=== PATIENT | female | born 1985 | race African-American/Black ===

== ENCOUNTER 2020-07-06 12:00 | Inpatient (IN) | payer OTHER ==
[2020-07-06] MEDS: ELECTROLYTE-148 SOLN 1,000 ML IV SCH (12:45)
[2020-07-06 12:51] VITALS: BMI 37.9
[2020-07-06] MEDS ORDERED: OXYTOCIN 30 UNITS in 0.9% NS 30 UNIT/500 ML INFUS.BAG IVPB ONE (13:26)
[2020-07-06] MEDS: OXYTOCIN 30 UNITS in 0.9% NS 30 UNIT/500 ML INFUS.BAG IVPB SCH (13:40)
[2020-07-06 14:00] LABS: BASO % 0.6 % (0-2.0); EOS % 0.2 % (0-4.5); HEMATOCRIT 36.1 % (32.4-45.2); HEMOGLOBIN 12.1 GM/dL (10.7-15.3); LYMPH % 16.2 % (8-40); MCH 32.7 pg (25.7-33.7); MCHC 33.6 g/dl (32.0-36.0); MEAN CELL VOLUME 97.3 fl (80-96); MEAN PLT VOLUME 10.9 fl (7.5-11.1); MONO % 8.8 % (3.8-10.2); NEUT % 74.2 % (42.8-82.8); PLATELET COUNT 107 K/MM3 (134-434); RBC 3.71 M/mm3 (3.60-5.2); RDW 17.3 % (11.6-15.6); WHITE BLOOD COUNT 6.1 K/mm3 (4.0-10.0)
[2020-07-06 14:07] LABS: INR 0.97 (0.83-1.09); PROTHROMBIN TIME (PATIENT) 11.8 SEC (9.7-13.0)
[2020-07-06 14:09] LABS: ACTIVATED PTT 28.5 SECONDS (25.2-36.5)
[2020-07-06 14:27] LABS: POTASSIUM 3.6 mmol/L (3.5-5.1)
[2020-07-06 14:30] LABS: BLOOD UREA NITROGEN 5.1 mg/dL (7-18); CALCIUM 9.2 mg/dL (8.5-10.1)
[2020-07-06 14:33] LABS: CREATININE 0.6 mg/dL (0.55-1.3)
[2020-07-06] MEDS ORDERED: PCA PUMP NR ONE (16:24)
[2020-07-06] MEDS ORDERED: LIDOCAINE HCL 1% PRESERVATIVE FREE - 30ML VIAL ONE (16:25)
[2020-07-06] MEDS ORDERED: OXYTOCIN 20 UNITS in 0.9% NS 20 UNIT/1,000 ML INFUS.BAG IV ONE ×2 (16:25→18:12)
[2020-07-06] MEDS: FENTANYL/BUPIVACAINE/NS/PF - PCEA - 50 ML DISP.SYRIN EP SCH (16:46)
[2020-07-06] MEDS ORDERED: FENTANYL/BUPIVACAINE/NS/PF - PCEA - 50 ML DISP.SYRIN EP ONE (16:47)
[2020-07-06] MEDS ORDERED: NALOXONE HCL 0.4 MG/ML VIAL IVPUSH PRN (17:14)
[2020-07-06] MEDS: OXYTOCIN 20 UNITS in 0.9% NS 20 UNIT/1,000 ML INFUS.BAG IV SCH (18:11)
[2020-07-06] MEDS ORDERED: ACETAMINOPHEN 325 MG TABLET (FP) PO PRN (18:26)
[2020-07-06] MEDS ORDERED: BENZOCAINE 20% 57 GM BOTTLE TP PRN (18:26)
[2020-07-06] MEDS ORDERED: IBUPROFEN 600 MG TABLET (FP) PO PRN (18:26)
[2020-07-06] MEDS ORDERED: BISACODYL 10 MG SUPP.RECT RC PRN (18:26)
[2020-07-06] MEDS ORDERED: WITCH HAZEL 50% (TUCKS) 40 PAD/JAR PAD TP PRN (18:26)
[2020-07-06] MEDS ORDERED: METHYLERGONOVINE MALEATE 0.2 MG/1 ML AMP IM PRN (18:26)
[2020-07-06] MEDS ORDERED: BENZOCAINE 28 GM HEMORRHOIDAL OINTMENT TP PRN (18:26)
[2020-07-06] MEDS ORDERED: MISOPROSTOL 200 MCG TABLET PV ONE (19:15)
[2020-07-06] MEDS ORDERED: MISOPROSTOL 200 MCG TABLET PV SCH (22:00)
[2020-07-07 08:27] LABS: BASO % 0.6 % (0-2.0); EOS % 0.1 % (0-4.5); HEMATOCRIT 36.8 % (32.4-45.2); HEMOGLOBIN 12.1 GM/dL (10.7-15.3); LYMPH % 12.4 % (8-40); MCH 31.9 pg (25.7-33.7); MCHC 32.9 g/dl (32.0-36.0); MEAN CELL VOLUME 97.1 fl (80-96); MEAN PLT VOLUME 11.2 fl (7.5-11.1); MONO % 8.1 % (3.8-10.2); NEUT % 78.8 % (42.8-82.8); PLATELET COUNT 107 K/MM3 (134-434); RBC 3.79 M/mm3 (3.60-5.2); RDW 17.7 % (11.6-15.6); WHITE BLOOD COUNT 10.1 K/mm3 (4.0-10.0)
[2020-07-07] MEDS: PRENATAL VITAMINS W/ FOLIC ACID TABLET (FP) PO SCH (11:15)
[2020-07-07] MEDS: ELECTROLYTE-148 SOLN 1,000 ML IV SCH (19:33)
[2020-07-07] MEDS: FENTANYL/BUPIVACAINE/NS/PF - PCEA - 50 ML DISP.SYRIN EP SCH (19:33)
[2020-07-07] MEDS: OXYTOCIN 30 UNITS in 0.9% NS 30 UNIT/500 ML INFUS.BAG IVPB SCH (19:33)
[2020-07-07] MEDS: OXYTOCIN 20 UNITS in 0.9% NS 20 UNIT/1,000 ML INFUS.BAG IV SCH (19:34)
[2020-07-07] MEDS ORDERED: SENNOSIDES/DOCUSATE COMBO (SENNA PLUS) TABLET (UD) PO PRN (22:00)
[2020-07-08 09:09] VITALS: BP 103/63; PULSE 64; TEMP 97.5
[2020-07-08] MEDS: PRENATAL VITAMINS W/ FOLIC ACID TABLET (FP) PO SCH (10:21)
== END 2020-07-08 13:15 | disposition home or self-care (01) | DRG 560 ==
LOC: JLDR 12:00 → J3W 20:23
PROVIDERS: ADMIT Obstetrics & Gynecology; ATTEND Obstetrics & Gynecology
PROC: 10E0XZZ Delivery of Products of Conception, External Approach (ICD-10-PCS; principal; 2020-07-06)
PROC: 10H073Z Insertion of Monitoring Electrode into Products of Conception, Via Natural or Artificial Opening (ICD-10-PCS; 2020-07-06)
PROC: 4A1H7CZ Monitoring of Products of Conception, Cardiac Rate, Via Natural or Artificial Opening (ICD-10-PCS; 2020-07-06)
PROC: 3E0R3BZ Introduction of Anesthetic Agent into Spinal Canal, Percutaneous Approach (ICD-10-PCS; 2020-07-06)
PROC: 3E033VJ Introduction of Other Hormone into Peripheral Vein, Percutaneous Approach (ICD-10-PCS; 2020-07-06)
PROC: 10907ZC Drainage of Amniotic Fluid, Therapeutic from Products of Conception, Via Natural or Artificial Opening (ICD-10-PCS; 2020-07-06)
DX: O42.02 Full-term premature rupture of membranes, onset of labor within 24 hours of rupture (principal); Z37.0 Single live birth; O48.0 Post-term pregnancy; Z3A.40 40 weeks gestation of pregnancy; Z86.19 Personal history of other infectious and parasitic diseases; Z87.19 Personal history of other diseases of the digestive system; O66.0 Obstructed labor due to shoulder dystocia; O99.214 Obesity complicating childbirth
CPT/HCPCS: 36415; 59409; 80048; 85025; 85610; 85730; 86780; 86850; 86900; 86901